=== PATIENT | male | born 1955 | race Caucasian/White ===

== ENCOUNTER 2021-01-30 10:51 | Emergency (ER) | payer OTHER ==
[2021-01-30 11:57] VITALS: BP 133/88; PULSE 72; O2SAT 98
[2021-01-30] MEDS ORDERED: TETRACAINE 0.5% STERI-UNIT SOL OP ONE (11:57)
[2021-01-30] MEDS ORDERED: Fluor-I-Strip/Ful-Flo OP ONE (11:57)
[2021-01-30] MEDS ORDERED: Eye-Stream Solution ONE (11:58)
[2021-01-30] MEDS: Fluor-I-Strip/Ful-Flo OP ONE (12:00)
[2021-01-30] MEDS: TETRACAINE 0.5% STERI-UNIT SOL OP STA (12:00)
[2021-01-30] MEDS: Eye-Stream Solution OP ONE (12:00)
--- NOTE | 2021-01-30 12:13 | ERPHSYRPT ---
- History of Present Illness Time Seen by Provider: 01/30/21 10:53 Source: patient Exam Limitations: no limitations Patient Subjective Stated Complaint: Patient states he was grinding a 4-5 days ago and a piece of metal flew into his right eye. He states he was hoping that it would work itself out on its own but it is still in there and he wants help getting the metal out. Triage Nursing Assessment: Patient ambulated back to ED without difficulties. He is alert and oriented and answering questions appropriately. Patient wearing glasses upon arrival but states they are just for reading. Right eye is red and inflammed. Forgien object is noted in right iris upon visual inspection. Eye noted to be watery. Visual exam completed and results are in this triage. Physician History: 65 years old up-to-date with tetanus presented in the ER with chief complaint of right eye foreign body sensation with dull aching pain started immediately after he was working on a lens grinder rough and a piece of metal flew into his right eye. Patient was waiting that it will come off on its own. Has redness of eye without any blurry vision but does have watering. Timing/Duration: day(s) (5), constant, sudden Location: right eye Severity: mild Apparent Injury: yes Associated Symptoms: pain, burning, redness Allergies/Adverse Reactions: No Known Drug Allergies Allergy (Unverified 01/30/21 11:45) Hx Tetanus, Diphtheria Vaccination/Date Given: No Hx Influenza Vaccination/Date Given: No Hx Pneumococcal Vaccination/Date Given: No Immunizations Up to Date: No Travel Risk - International Travel Have you traveled outside of the country in past 3 weeks: No - Coronavirus Screening Are you exhibiting any of the following symptoms?: No Close contact with a COVID-19 positive Pt in past 14-21 Days: No - Vaccine Status Have you recieved a Covid-19 vaccination: No - Review of Systems Constitutional: No Symptoms Eyes: Eye Pain, Eye Redness, Itchy, Foreign Body Sensation Ears, Nose, & Throat: No Symptoms Respiratory: No Symptoms Cardiac: No Symptoms Musculoskeletal: No Symptoms Skin: No Symptoms Neurological: No Symptoms Psychological: No Symptoms Hematologic/Lymphatic: No Symptoms Immunological/Allergic: No Symptoms - Past Medical History Pertinent Past Medical History: Yes Musculoskeletal History: Fractures - Past Surgical History Past Surgical History: Yes Musculoskeletal: Orthopedic Surgery - Social History Smoking Status: Current every day smoker How long have you smoked: 40 years Exposure to second hand smoke: Yes Drug Use: none Patient Lives Alone: No - Nursing Vital Signs Nursing Vital Signs: Initial Vital Signs Temperature 97.9 F 01/30/21 11:46 Pulse Rate 72 01/30/21 11:46 Respiratory Rate 18 01/30/21 11:46 Blood Pressure 133/88 01/30/21 11:46 O2 Sat by Pulse Oximetry 98 01/30/21 11:46 Pain Scale Pain Intensity 0 - Physical Exam General Appearance: no apparent distress, alert Vision Acuity Degree Evaluation Phase: Uncorrected Vision Acuity Right Eye: 20/200 Vision Acuity Left Eye: 20/100 Eye Exam: right eye: conjunctival inflammation, erythema, other (Small piece of metal without any ring announcing lesion around at 8 o'clock position at over site of cornea away from pupils), left eye: normal inspection, bilateral eye: PERRL, EOMI Ears, Nose, Throat Exam: normal ENT inspection, TMs normal, pharynx normal Neck Exam: normal inspection, supple, full range of motion Respiratory Exam: wheezing, No respiratory distress, No diminished breath sounds, No accessory muscle use Cardiovascular Exam: regular rate/rhythm, normal heart sounds Extremity Exam: normal inspection Neurologic: alert, oriented x 3, cooperative, dock boss II-XII nml as tested Skin Exam: normal color SpO2 Interpretation: normal SpO2: 98 O2 Delivery: Room Air Procedures - Eye Procedure Time of Procedure: 12:08 Timeout: Performed Tetracaine Drops Administered: Yes Eye FB Removal: removal w/ needle Remaining Material after FB Removal: none Eye Irrigated w/ Saline (ccs): 30 Antibiotic Oinment/Drps Admin: right eye Progress: Patient tolerated procedure well. Foreign body removed. Ordered Tests: Medication Summary Generic Name Dose Route Start Last Admin Trade Name Freq PRN Reason Stop Dose Admin Ofloxacin 5 ml 01/30/21 13:00 01/30/21 12:15 Ofloxacin 0.3% Opth 5 Ml Eye Drops OP 03/01/21 12:59 5 ml QID BJ Administration Discontinued Medications Generic Name Dose Route Start Last Admin Trade Name Freq PRN Reason Stop Dose Admin Eye Irrigation Solution Confirm 01/30/21 11:58 Sodium/Potassium/Rangel/Magnesium 30 Ml Eye Wash Administered 01/30/21 11:59 Dose 30 ml .ROUTE .STK-MED ONE Eye Irrigation Solution 15 ml 12/18/21 11:59 01/30/21 12:00 Sodium/Potassium/Rangel/Magnesium 30 Ml Eye Wash OP 01/30/21 12:00 15 ml STAT ONE Administration Fluorescein Sodium Confirm 01/30/21 11:57 Fluorescein Sodium 1 Mg/Strip Strip Administered 01/30/21 11:58 Dose 1 mg OP .STK-MED ONE Fluorescein Sodium 1 mg 01/30/21 11:59 01/30/21 12:00 Fluorescein Sodium 1 Mg/Strip Strip OP 01/30/21 12:00 1 mg STAT ONE Administration Tetracaine HCl Confirm 01/30/21 11:57 Tetracaine Hcl/Pf 4 Ml Bottle Administered 01/30/21 11:58 Dose 4 ml OP .STK-MED ONE Tetracaine HCl 4 ml 01/30/21 11:59 01/30/21 12:00 Tetracaine Hcl/Pf 4 Ml Bottle OP 01/30/21 12:00 4 ml STAT STA Administration - Progress Progress: improved Progress Note: 01/30/21 12:29 Foreign bodies removed and feeling better. Started on ofloxacin. Outpatient optometry/ophthalmology follow-up. Counseled pt/family regarding: diagnosis, need for follow-up - Departure Departure Disposition: Home Clinical Impression: Foreign body in cornea, right eye, initial encounter Condition: Stable Critical Care Time: No Referrals: MEHUL BIRMINGHAM [Primary Care Provider] - Follow up/PCP as directed Instructions: Foreign Body in Eye (DC) Additional Instructions: Put 2 drops right eye every 6 hourly for 5 to 7 days. Follow-up with administration specialist/director of securities and real estate for reevaluation in 1 to 2 days. Return to ER for increased watering, redness or if having blurry vision/pain etc.
[2021-01-30] MEDS: Ocuflox OPHTHALMIC 5 ML OP SCH (12:15)
[2021-01-30] MEDS ORDERED: Ocuflox OPHTHALMIC 5 ML OP ONE (12:15)
== END 2021-01-30 12:38 | disposition home or self-care (01) ==
LOC: ED 10:51
DX: T15.01XA Foreign body in cornea, right eye, initial encounter (principal); W31.89XA Contact with other specified machinery, initial encounter; Y93.H3 Activity, building and construction; Z72.0 Tobacco use
CPT/HCPCS: 65220; 99283; A9270-GY

== ENCOUNTER 2021-04-29 11:30 | Emergency (ER) | payer OTHER ==
[2021-04-29 12:19] LABS: Absolute Neutrophil Ct (ANC) 4.23 (1.4-6.9); Basophil (Absolute #) 0.02 (0-0.4); Eosinophil % 3.4 % (0.00-5.0); Hematocrit 38.4 % (42-50); Hemoglobin 12.7 gm/dl (12.5-18.0); Lymphocyte (Absolute #) 0.98 (1.0-4.6); Lymphocytes % 16.6 % (24.0-44.0); Mean Cell Volume 95.3 fl (78-100); Mean Corpuscular Hemoglobin 31.5 pg (26-32); Mean Corpuscular Hgb Concent. 33.1 g/dl (32-36); Mean Platelet Volume 9.5 fl (7.5-11.0); Monocyte (Absolute #) 0.49 (0.0-1.3); Monocytes % 8.3 % (0.0-12.0); Neutrophil % 71.4 % (36.0-66.0); Platelet Count 313 K/mm3 (150-450); Red Blood Count 4.03 M/mm3 (4.1-5.6); Red Cell Distribution Width 12.9 % (11.5-14.0); White Blood Count 5.9 K/mm3 (4.0-10.5)
[2021-04-29 12:44] LABS: ALBUMIN 3.6 g/dL (3.5-5.0); ALKALINE PHOSPHATASE 71 U/L (38-126); ANION GAP 10.9 MEQ/L (5-15); BLOOD UREA NITROGEN 16 mg/dL (9-20); CHLORIDE 104 mmol/L (98-107); Calcium 8.9 mg/dL (8.4-10.2); Carbon Dioxide 27 mmol/L (22-30); Creatinine 1 0.66 mg/dL (0.66-1.25); EST GLOMERULAR FILTRATION RATE > 60.0 ML/MIN; Glucose 144 mg/dL (74-106); NT PRO BNP 157 pg/mL (0-900); Potassium 3.5 mmol/L (3.5-5.1); SGOT/AST 31 U/L (17-59); SGPT/ALT 22 U/L (0-50); SODIUM 138 mmol/L (137-145); Total Protein 6.7 g/dL (6.3-8.2)
--- NOTE | 2021-04-29 12:56 | XRAY ---
Indication: Edema. Two-dimensional sonogram and color Doppler imaging of the major venous vessels of the left leg performed. Comparison: None No thrombus seen in the examined deep venous vessels of the left leg including greater saphenous vein. Veins demonstrate normal compressibility. Venous waveforms are normal with and without augmentation. Impression: Left leg negative for DVT.
--- NOTE | 2021-04-29 14:02 | ERPHSYRPT ---
- History of Present Illness Source: patient Exam Limitations: other (65 yo wm w LLE edema x1wk. ) Patient Subjective Stated Complaint: L foot swelling Triage Nursing Assessment: pt to ED c/o L foot swelling for about 1 week. pt states this has happened a few times over last 20 years but it seems to resolve on its own, never had this examined before. denies pain at this time. redness, skin tightness, and swelling noted to L foot that radiates to L lower leg. pedal pulses strong bilaterally. Physician History: 65 yo wm w LLE edema x1 wk. Pt denies injury/chest pain/dyspnea/fever/pain/N/V. He has no h/o DVT/PE. He states that his leg swells intermittantly. Method of Injury: unknown Occurred: other (1week) Quality: other (Painless) Severity of Pain-Max: none Severity of Pain-Current: none Modifying Factors: Improves With: nothing Associated Symptoms: No unable to bear weight, No dizzy, No fainted, No seizure, No snapping sensation, No popping sensation Allergies/Adverse Reactions: No Known Drug Allergies Allergy (Verified 04/29/21 11:46) Hx Tetanus, Diphtheria Vaccination/Date Given: No Hx Influenza Vaccination/Date Given: No Hx Pneumococcal Vaccination/Date Given: No Immunizations Up to Date: No Travel Risk - International Travel Have you traveled outside of the country in past 3 weeks: No - Coronavirus Screening Are you exhibiting any of the following symptoms?: No Close contact with a COVID-19 positive Pt in past 14-21 Days: No - Vaccine Status Have you recieved a Covid-19 vaccination: No - Review of Systems Constitutional: No Symptoms Eyes: No Symptoms Ears, Nose, & Throat: No Symptoms Respiratory: No Symptoms Cardiac: No Symptoms Abdominal/Gastrointestinal: No Symptoms Genitourinary Symptoms: No Symptoms Skin: No Symptoms Neurological: No Symptoms Psychological: No Symptoms Endocrine: No Symptoms Hematologic/Lymphatic: No Symptoms Immunological/Allergic: No Symptoms - Past Medical History Pertinent Past Medical History: Yes Musculoskeletal History: Fractures - Past Surgical History Past Surgical History: Yes Musculoskeletal: Orthopedic Surgery - Social History Smoking Status: Current every day smoker How long have you smoked: 40 years Exposure to second hand smoke: Yes Drug Use: none Patient Lives Alone: No Significant Family History: no pertinent family hx - Nursing Vital Signs Nursing Vital Signs: Initial Vital Signs Temperature 96.9 F 04/29/21 11:41 Pulse Rate 98 H 04/29/21 11:41 Respiratory Rate 18 04/29/21 11:41 Blood Pressure 147/99 04/29/21 11:41 O2 Sat by Pulse Oximetry 96 04/29/21 11:41 Pain Scale Pain Intensity 0 Hypertensive - Physical Exam General Appearance: no apparent distress Eyes, Ears, Nose, Throat Exam: normal ENT inspection, TMs normal, pharynx normal, moist mucous membranes Neck Exam: normal inspection, non-tender, supple, full range of motion, No Brudzinski, No Kernig's, No meningismus Cardiovascular/Respiratory Exam: normal breath sounds, regular rate/rhythm, heart sounds normal, No murmur Gastrointestinal/Abdominal Exam: non-tender, soft Back Exam: normal inspection, normal range of motion, No CVA tenderness, No vertebral tenderness Hips Exam: bilateral: non-tender, normal inspection, normal range of motion Legs Exam: left leg: swelling (LLE edema/Calf NTTP/Good pedal pulse, distal sensation, and capillary return/Mild erythema) Knees Exam: bilateral knee: non-tender, normal inspection, normal range of motion Ankle Exam: left ankle: swelling (Mild edema/Mild erythema) Foot Exam: left foot: swelling (Mod L foot edema/Good pedal pulse, distal sensation, and capillary return) Neuro/Tendon Exam: normal sensation, normal motor functions, normal tendon functions, responds to pain Mental Status Exam: alert, oriented x 3, cooperative Skin Exam: other (Mild LLE erythema) SpO2 Interpretation: normal SpO2: 96 O2 Delivery: Room Air - Course Nursing assessment & vital signs reviewed: Yes - Radiology Ultrasound Exam Venous Lower Extremity Ultrasound: discussed w/radiologist (LLE venous doppler neg for DVT) Ordered Tests: Active Orders 24 hr Category Date Time Status VENOUS UNILAT/LIMITED EXTREMIT [US] Stat Exams 04/29/21 12:41 Completed CBC W DIFF Stat Lab 04/29/21 12:15 Completed CMP Stat Lab 04/29/21 12:15 Completed NT PRO BNP Stat Lab 04/29/21 12:15 Completed TROPONIN Q3H Lab 04/29/21 12:15 Completed Lab/Rad Data: Laboratory Result Diagrams 04/29/21 12:15 04/29/21 12:15 Laboratory Results 04/29/21 04/29/21 04/29/21 Range/Units 12:15 12:15 12:15 WBC 5.9 (4.0-10.5) K/mm3 RBC 4.03 L (4.1-5.6) M/mm3 Hgb 12.7 (12.5-18.0) gm/dl Hct 38.4 L (42-50) % MCV 95.3 (78-100) fl MCH 31.5 (26-32) pg MCHC 33.1 (32-36) g/dl RDW 12.9 (11.5-14.0) % Plt Count 313 (150-450) K/mm3 MPV 9.5 (7.5-11.0) fl Gran % 71.4 H (36.0-66.0) % Eos # (Auto) 0.20 (0-0.5) Absolute Lymphs (auto) 0.98 L (1.0-4.6) Absolute Monos (auto) 0.49 (0.0-1.3) Lymphocytes % 16.6 L (24.0-44.0) % Monocytes % 8.3 (0.0-12.0) % Eosinophils % 3.4 (0.00-5.0) % Basophils % 0.3 (0.0-0.4) % Absolute Granulocytes 4.23 (1.4-6.9) Basophils # 0.02 (0-0.4) Sodium 138 (137-145) mmol/L Potassium 3.5 (3.5-5.1) mmol/L Chloride 104 (98-107) mmol/L Carbon Dioxide 27 (22-30) mmol/L Anion Gap 10.9 (5-15) MEQ/L BUN 16 (9-20) mg/dL Creatinine 0.66 (0.66-1.25) mg/dL Estimated GFR > 60.0 ML/MIN Glucose 144 H (74-106) mg/dL Calcium 8.9 (8.4-10.2) mg/dL Total Bilirubin 0.60 (0.2-1.3) mg/dL AST 31 (17-59) U/L ALT 22 (0-50) U/L Alkaline Phosphatase 71 (38-126) U/L Troponin I < 0.012 (0.000-0.034) ng/mL NT-Pro-B Natriuret Pep 157 (0-900) pg/mL Serum Total Protein 6.7 (6.3-8.2) g/dL Albumin 3.6 (3.5-5.0) g/dL - Progress Progress Note: 04/29/21 14:27 After serial exams, it appears that pt has LLE cellulitis. Will start Doxycycline twice a day for 10 days and Amoxil 850mg bid x 10 days. Counseled pt/family regarding: lab results, diagnosis, need for follow-up, rad results - Departure Departure Disposition: Home Clinical Impression: Cellulitis Condition: Stable Critical Care Time: No Referrals: DOCTOR,NO FAMILY [Primary Care Provider] - Follow up/PCP as directed Instructions: Dependent Edema (DC), Cellulitis (Skin Infection), Adult (DC) Additional Instructions: Elevate leg Follow up with a family MD Start Doxycycline twice a day for 10 days and Amoxil 850mg twice a day for 10 days Return to ER for increased swelling, redness, or temperature greater than 100.5 Prescriptions: Amoxicillin 875 mg PO BID 10 Days #20 tablet Doxycycline Monohydrate 100 mg PO BID 10 Days #20
[2021-04-29 14:36] VITALS: BP 121/84; PULSE 80
[2021-04-29 18:36] VITALS: O2SAT 96
== END 2021-04-29 14:43 | disposition home or self-care (01) ==
LOC: ED 11:30
DX: L03.116 Cellulitis of left lower limb (principal); R60.0 Localized edema; Z72.0 Tobacco use
CPT/HCPCS: 36415; 80053; 83880; 84484; 85025; 93971; 99284

== ENCOUNTER 2021-08-19 12:10 | Day surgery (SDC) | payer OTHER ==
--- NOTE | 2021-08-18 14:14 | HP ---
DATE OF SURGERY: 08/19/2021 HISTORY OF PRESENT ILLNESS: The patient presents with history of neck mass. It appears to be benign. The patient desires removal. PAST MEDICAL HISTORY: None. PAST SURGICAL HISTORY: None. ALLERGIES: NKDA. MEDICATIONS: Potassium, Lasix. FAMILY HISTORY: Diabetes. Colon cancer. SOCIAL HISTORY: Smokes one pack per day. Denies alcohol. REVIEW OF SYSTEMS: CONSTITUTIONAL: Denies fever or chills. CHEST: Denies shortness of breath. CVS: Denies chest pain. ABDOMEN: Denies abdominal pain. PHYSICAL EXAMINATION: GENERAL: No acute distress. CHEST: Nonlabored. No shortness of breath. CVS: Regular rate and rhythm. ABDOMEN: Soft, nontender. IMPRESSION: Posterior neck mass. PLAN: Excision of posterior neck mass with Dr. Asa García. As dictated by Deepthi Porter NP.
[~2021-08-19 12:10] MED LIST: Lactated Ringers 1,000 ML IV ONE; Sensorcaine 0.25% 10 ML ONE
[2021-08-19] MEDS ORDERED: Lactated Ringers 1,000 ML IV SCH (13:00)
[2021-08-19] MEDS ORDERED: TORAdol 30 mg Injection ONE (13:43)
[2021-08-19] MEDS ORDERED: DIPRIVAN 200 MG/20 ML IV ONE (13:43)
[2021-08-19] MEDS ORDERED: Xylocaine-Mpf 2% 5 Ml Vial ONE (13:43)
[2021-08-19] MEDS ORDERED: Zofran 4 MG/2 ML VIAL ONE (13:43)
[2021-08-19] MEDS ORDERED: Decadron 4 MG INJ ONE (13:43)
[2021-08-19] MEDS ORDERED: DEXMEDETOMIDINE 80 MCG/20ML-NS IV ONE (13:44)
[2021-08-19] MEDS ORDERED: SUBLIMAZE 100 MCG/2 ML ONE ×2 (13:44→14:53)
[2021-08-19] MEDS ORDERED: Versed 2 MG/2 ML Injection ONE (13:44)
[2021-08-19] MEDS ORDERED: Pre-Attached Lta Kit TP ONE (13:49)
[2021-08-19] MEDS ORDERED: KEFZOL 1 GM ONE (14:22)
[2021-08-19] MEDS ORDERED: PHENYLEPHRINE HCL ONE (14:24)
[2021-08-19] MEDS ORDERED: Lactated Ringers 1,000 ML IV ONE (14:35)
[2021-08-19] MEDS ORDERED: Ephedrine Sulfate 50 MG/ML ONE (14:46)
[2021-08-19] MEDS ORDERED: BACIGUENT 30 GM ONE (15:00)
[2021-08-19 16:59] VITALS: BP 138/93; PULSE 75; O2SAT 95
--- NOTE | 2021-08-20 08:57 | OP ---
SURGERY DATE/TIME: 08/19/2021 1409 PREOPERATIVE DIAGNOSES: 1) A 5 cm lipoma of the neck. 2) A 4 cm left lower neck abscess. POSTOPERATIVE DIAGNOSES: 1) A 5 cm lipoma of the neck. 2) A 4 cm left lower neck abscess. PROCEDURES: 1) Excision of a 6 cm lipoma of the posterior central neck with closure. 2) Incision and drainage, excision of a 4 cm abscess left lower neck with packing. SURGEON: Asa García M.D. ANESTHESIA: General by Roby Can CRNA. COMPLICATIONS: None. CONDITION: Stable. INDICATION: The patient has these two areas. DESCRIPTION OF PROCEDURE: Taken to surgery. Prone position. The clean area was addressed first. Elliptical excision and the lipoma was unilocular and removed in toto. Hemostasis obtained. Closed with vertical mattress sutures 3-0 Prolene. The abscess was down low to the left. It was opened and it was excised and it was packed with Iodoform. It was about 4 cm. The patient tolerated the procedure satisfactorily. Findings discussed with the in the waiting room.
== END 2021-08-19 16:47 | disposition home or self-care (01) ==
LOC: SDC 12:10
PROVIDERS: ATTEND Surgery
DX: D17.0 Benign lipomatous neoplasm of skin and subcutaneous tissue of head, face and neck (principal); L02.11 Cutaneous abscess of neck
CPT/HCPCS: 87070; 87077; 88304; J0690; J1100; J1885; J2250; J2370; J2405; J2704; J3010; A9270-GY